=== PATIENT | female | born 1950 | race Caucasian/White ===

== ENCOUNTER 2021-06-13 07:59 | Day surgery (SDC) | payer OTHER, SELFPAY ==
[~2021-06-13] VITALS: Ht 157.5 cm; Wt 53.5 kg
[2021-06-13] MEDS ORDERED: MIDAZOLAM HCL 2 MG/2 ML VIAL (VERSED) ONE (08:38)
[2021-06-13] MEDS ORDERED: ACETAMINOPHEN 500 MG TABLET PO ONE (10:30)
[2021-06-13] MEDS ORDERED: ACETAMINOPHEN 500 MG TABLET ONE (10:30)
[2021-06-13] MEDS ORDERED: NS IRRIG SOLN 1000 ML IR ONE (14:46)
[2021-06-13] MEDS ORDERED: ARTICAINE HCL/EPINEPHRINE 4%/1:200,000 BIT 1.7 ML CARTRIDGE IJ ONE (14:46)
[2021-06-13] MEDS ORDERED: MEPIVACAINE HCL 3% 30 MG/ML CARTRIDGE IJ ONE (14:46)
[2021-06-13] MEDS ORDERED: NS 100 ML BAG ONE (14:46)
[2021-06-13 17:52] VITALS: BP_SYST 146
== END 2021-06-13 11:18 | disposition home or self-care (01) ==
LOC: SMU 07:59 → UNDOADMIN 07:59 → SDS 07:59 → EDSTATUS 09:00 → UNDODISIN 11:18 → SDS 11:18
PROVIDERS: ATTEND Dentist General Practice
DX: M27.2 Inflammatory conditions of jaws (principal); J43.9 Emphysema, unspecified; M89.8X0 Other specified disorders of bone, multiple sites; M26.603 Bilateral temporomandibular joint disorder, unspecified; J01.01 Acute recurrent maxillary sinusitis; K05.223 Aggressive periodontitis, generalized, severe; K12.2 Cellulitis and abscess of mouth; K08.421 Partial loss of teeth due to periodontal diseases, class I; G89.4 Chronic pain syndrome; K21.9 Gastro-esophageal reflux disease without esophagitis; N18.9 Chronic kidney disease, unspecified; Z88.0 Allergy status to penicillin; Z79.82 Long term (current) use of aspirin; Z79.899 Other long term (current) drug therapy; Z20.822 Contact with and (suspected) exposure to COVID-19
CPT/HCPCS: 21215; 21248; 36415; 70140; 87426; C1713 ×2; J3465